=== PATIENT | female | born 1975 | race Caucasian/White ===

== ENCOUNTER 2018-06-24 03:45 | Emergency (ER) | payer OTHER ==
[2018-06-24] MEDS ORDERED: FAMOTIDINE 20 MG/50 ML IVPB 20 MG/50 ML MG IVPB ONE ×2 (03:52→03:59)
[2018-06-24] MEDS ORDERED: methylPREDNISolone NA SUCC 125 MG/2 ML VIAL IVPB ONE (03:52)
--- NOTE | 2018-06-24 03:58 | PDOC ---
Attending Attestation - HPI HPI: 06/24/18 04:28 The patient is a 42 year old female, with a significant PMH of glaucoma, urticarial allergic reactions, and hernia repair who presents to the emergency department with 1 day of worsening bilateral eyelid swelling. The patient states she believes the allergic reaction is from a cream from her hairstylist from her appointment this past . The patient states she saw her PCP at the start of her symptoms and was given cetirizine with minima relief. The patient denies chest pain, shortness of breath, wheezing, sore throat, throat closing sensation, headache and dizziness. Denies fever, chills, nausea, vomit, diarrhea and constipation. Denies dysuria, frequency, urgency and hematuria. Allergies: NKA - Physicial Exam PE: 06/24/18 04:28 GENERAL: Awake, alert, and fully oriented, in no acute distress HEAD: No signs of trauma EYES: (+) Bilateral periorbital edema. PERRLA, EOMI, sclera anicteric, conjunctiva clear ENT: Auricles normal inspection, hearing grossly normal, nares patent, oropharynx clear without exudates. Moist mucosa NECK: Normal ROM, supple, no lymphadenopathy, JVD, or masses LUNGS: Breath sounds equal, clear to auscultation bilaterally. No wheezes, and no crackles HEART: Regular rate and rhythm, normal S1 and S2, no murmurs, rubs or gallops ABDOMEN: Soft, nontender, normoactive bowel sounds. No guarding, no rebound. No masses EXTREMITIES: Normal range of motion, no edema. No clubbing or cyanosis. No cords, erythema, or tenderness NEUROLOGICAL: Cranial nerves II through XII grossly intact. Normal speech, normal gait SKIN: Warm, Dry, normal turgor, no rashes or lesions noted. <Dawson Hargrove - Last Filed: 06/24/18 04:27> - Resident Resident Name: Saundra Acuña - ED Attending Attestation I have performed the following: I have examined & evaluated the patient, The case was reviewed & discussed with the resident, I agree w/resident's findings & plan - Medical Decision Making 06/24/18 04:20 Pt will be treated with solumedrol and benadryl and pepcid. SHe feels well. She has no fever or chills, or asthma/wheeze/difficulty breathing. 06/24/18 04:55 Pt has swollen eyes and forehead and she will be discharged home. <Vianey Martinez - Last Filed: 06/24/18 04:56> Attestations - Attestations 06/24/18 04:30 Documentation prepared by Dawson Hargrove, acting as chief medical officer for Vianey Martinez MD. <Dawson Hargrove - Last Filed: 06/24/18 04:27>
[2018-06-24] MEDS ORDERED: methylPREDNISolone NA SUCC 125 MG/2 ML VIAL ONE ×2 (03:59)
[2018-06-24 04:07] VITALS: BP 150/70; PULSE 75; TEMP 97.6; BMI 20.1
--- NOTE | 2018-06-24 04:11 | PDOC ---
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 She saw her PCP at the onset of symptoms and was prescribed cetirizine without improvement. She denies any throat closing sensation, hoarse voice, wheezing, SOB, chest pain, palpitations, n/v/d/ c, rash, pruritis, or other symptoms. She is still able to see and she has no eye pain or headache or dizziness. She has never had a reaction this bad before. Past History - Past Medical History Allergies/Adverse Reactions: Allergies Allergy/AdvReac Type Severity Reaction Status Date / Time No Known Allergies Allergy Verified 06/24/18 04:06 Home Medications: Ambulatory Orders Ibuprofen [Motrin -] 400 mg PO QID #28 tablet 06/03/16 Norgestimate-Ethinyl Estradiol [Tri-Estarylla] 1 each PO DAILY 06/03/16 Epinephrine [Epipen 2-Misael] 0.3 mg IJ ASDIR #1 kit 06/24/18 Prednisone [Deltasone] 20 mg PO DAILY #4 tablet 06/24/18 GI Disorders: Yes (gerd) - Surgical History Abdominal Surgery: Yes (HERNIA) - Suicide/Smoking/Psychosocial Hx Smoking History: Never smoked Have you smoked in the past 12 months: No Hx Alcohol Use: No Drug/Substance Use Hx: No Substance Use Type: None Review of Systems - Review of Systems Able to Perform ROS?: Yes Constitutional: No: Chills, Fever, Unexplained wgt Loss HEENTM: Yes: Other (eyelid swelling). No: Nose Congestion, Throat Pain Respiratory: No: Cough, Shortness of Breath Cardiac (ROS): No: Chest Pain, Palpitations ABD/GI: No: Constipated, Diarrhea, Nausea, Vomiting : No: Burning, Dysuria Musculoskeletal: No: Back Pain, Neck Pain Integumentary: No: Bruising, Rash Neurological: No: Headache, Numbness, Tingling, Weakness, Dizziness Endocrine: No: Unexplained Weight Gain, Unexplained Weight Loss *Physical Exam - Physical Exam General Appearance: Yes: Nourished, Appropriately Dressed, Other (alert and appropriate and well appearing adult female in no distress who answers questions appropriately). No: Apparent Distress HEENT: positive: EOMI, MARISELA, Normal Voice, Hearing Grossly Normal, Other ( marked bilateral periorbital edema limiting her ability to open her eyes). negative: Scleral Icterus (R), Scleral Icterus (L), Nasal Congestion Neck: positive: Trachea midline, Supple. negative: Tender, Rigid Respiratory/Chest: positive: Lungs Clear, Normal Breath Sounds. negative: Respiratory Distress, Crackles, Rhonchi, Stridor, Wheezing Cardiovascular: positive: Regular Rhythm, Regular Rate, S1, S2. negative: Edema , JVD, Murmur Gastrointestinal/Abdominal: positive: Normal Bowel Sounds, Soft. negative: Tender, Organomegaly, Pulsatile Mass, Guarding Musculoskeletal: positive: Normal Inspection. negative: Decreased Range of Motion, Vertebral Tenderness Extremity: positive: Normal Capillary Refill, Normal Inspection, Normal Range of Motion. negative: Tender, Cyanosis Integumentary: positive: Normal Color, Dry, Warm. 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 intact (grossly), Fully Oriented, Alert, Normal Mood/Affect, Normal Response, Motor Strength 5/5 ED Treatment Course - Medications Given in the ED: ED Medications Discontinued Medications Generic Name Dose Route Start Last Admin Trade Name Freq PRN Reason Stop Dose Admin Diphenhydramine HCl 50 mg 06/24/18 03:52 06/24/18 04:03 Benadryl Injection - IVPUSH 06/24/18 03:53 50 mg ONCE ONE Administration Methylprednisolone Sodium Succinate 125 mg 06/24/18 03:52 06/24/18 04:03 Solu-Medrol - IVPB 06/24/18 03:53 125 mg ONCE ONE Administration Medical Decision Making - Medical Decision Making 06/24/18 04:14 Pt p/w apparent allergic reaction. Initial Vital Signs Temp Pulse Resp BP Pulse Ox 97.6 F 75 20 150/70 100 06/24/18 03:52 06/24/18 03:52 06/24/18 03:52 06/24/18 03:52 06/24/18 03:52 Exam: As noted in Physical Exam section. DDX IBNLT: allergic rxn/angioedema, anaphylaxis, contact dermatitis, THERAPEUTIC SUPPORT STAFF, RPA, laryngitis, tracheitis, tonsillitis esophagitis, GERD, dysphagia, ACS, tracheal/ esophageal trauma, etc. W/U ordered: None TX ordered: IVF, Pepcid, Benadryl, Solu-Medrol Reassessment: Eyelid swelling improving, patient able to open her eyes and see well, walks self to bathroom. DISCHARGE The Pt has gotten significant relief of symptoms with ED medications. Workup is not concerning for emergency-level pathology at this time. The Pt is appropriate for discharge with close outpatient follow up. They are comfortable with this plan and will follow up with their PCP in 1-3 days. E-Rx for prednisone and EpiPen sent to patient's pharmacy. Specific return precautions are discussed and they will come back to the ER if necessary. *DC/Admit/Observation/Transfer Diagnosis at time of Disposition: Periorbital edema Allergic reaction Qualifiers: Encounter type: initial encounter Qualified Code(s): T78.40XA - Allergy, unspecified, initial encounter Glaucoma Qualifiers: Glaucoma type: unspecified Laterality: unspecified laterality Qualified Code(s) : H40.9 - Unspecified glaucoma - Discharge Dispostion Disposition: HOME Condition at time of disposition: Stable Decision to Admit order: No - Prescriptions Prescriptions: Epinephrine [Epipen 2-Misael] 0.3 mg IJ ASDIR #1 kit Prednisone [Deltasone] 20 mg PO DAILY #4 tablet - Referrals Referrals: Inessa Montiel MD [Primary Care Provider] - - Patient Instructions Printed Discharge Instructions: DI for Eye Allergic Reaction Additional Instructions: You were seen in the ER for an allergic reaction. We did an exam and gave you medications to control your symptoms, which improved while you were here in the ER. After our assessment, we do not believe you are having a medical emergency at this time, and we believe you are safe to go home. administrative support clerk your prescriptions which we are sending electronically to your pharmacy. This includes an EpiPen, which you should take only if you get throat closing sensation, difficulty breathing, lip swelling, vomiting, or other signs of severe allergic reaction. Please also take your steroid medication as prescribed , and take Benadryl 25 to 50 mg (or another antihistamine medication if you cannot take this medication because of your glaucoma) if you have symptoms. Please follow up with your regular PCP in 1-3 days. Call their clinic, tell them you were seen in the ER, and tell them you need a follow-up. If you have any new or worsening symptoms, especially increasing pain and redness to the area or other signs of infection like fever), please come back to the ER at any time (24 hours a day). If you are having severe or life threatening symptoms, or symptoms that make it unsafe to drive or have someone drive you, please call 911. - Post Discharge Activity
== END 2018-06-24 05:36 | disposition home or self-care (01) ==
LOC: JER 03:45
PROC: 3E0333Z Introduction of Anti-inflammatory into Peripheral Vein, Percutaneous Approach (ICD-10-PCS; principal; 2018-06-24)
PROC: 3E033GC Introduction of Other Therapeutic Substance into Peripheral Vein, Percutaneous Approach (ICD-10-PCS; 2018-06-24)
DX: H05.223 Edema of bilateral orbit (principal); H40.9 Unspecified glaucoma; T78.40XA Allergy, unspecified, initial encounter; X58.XXXA Exposure to other specified factors, initial encounter
CPT/HCPCS: 99282-25

== ENCOUNTER 2022-07-25 10:00 | Emergency (ER) | payer OTHER ==
[2022-07-25 10:16] VITALS: BP 147/75; PULSE 93; RESP 18; TEMP 97.9; BMI 20.1
== END 2022-07-25 10:45 | disposition home or self-care (01) ==
LOC: JER 10:00 → JERFT 10:00
DX: L02.214 Cutaneous abscess of groin (principal)
CPT/HCPCS: 99281-25

== ENCOUNTER 2023-04-12 06:54 | Emergency (ER) | payer OTHER ==
[2023-04-12 07:00] VITALS: RESP 18; BMI 21.7
[2023-04-12] MEDS ORDERED: ACETAMINOPHEN 1000 MG/100 ML BAG IVPB ONE (08:26)
[2023-04-12] MEDS ORDERED: FAMOTIDINE 20 MG/50 ML IVPB 20 MG/50 ML MG IVPB ONE ×2 (08:26→08:29)
[2023-04-12] MEDS ORDERED: SODIUM CHLORIDE 1,000 ML IV STA (08:26)
[2023-04-12] MEDS ORDERED: ACETAMINOPHEN INJECTION 100 ML IVPB ONE (08:29)
[2023-04-12 09:14] LABS: EOS % 0.7 % (0-4.5); HEMATOCRIT 42.4 % (32.4-45.2); HEMOGLOBIN 14.5 GM/dL (10.7-15.3); LYMPH % 25.9 % (8-40); MCH 29.8 pg (25.7-33.7); MCHC 34.1 g/dl (32.0-36.0); MEAN CELL VOLUME 87.4 fl (80-96); MEAN PLT VOLUME 9.7 fl (7.5-11.1); MONO % 8.9 % (3.8-10.2); NEUT % 63.5 % (42.8-82.8); PLATELET COUNT 214 10^3/uL (134-434); RBC 4.85 M/mm3 (3.60-5.2); RDW 13.4 % (11.6-15.6); WHITE BLOOD COUNT 6.1 K/mm3 (4.0-10.0)
[2023-04-12 09:19] LABS: EPI CELLS 2 /uL (0-25.1); HYALINE CASTS 0 /uL (0-3.1); PH,URINE 6.5 (5.0-8.0); URINE APPEARANCE CLEAR; URINE BACTERIA 39 /uL (0-1359); URINE BILIRUBIN NEGATIVE (NEGATIVE); URINE COLOR YELLOW; URINE GLUCOSE (UA) NEGATIVE (NEGATIVE); URINE KETONE NEGATIVE (NEGATIVE); URINE LEUK ESTERASE NEGATIVE (NEGATIVE); URINE NITRITE NEGATIVE (NEGATIVE); URINE PROTEIN NEGATIVE (NEGATIVE); URINE RBC 35 /uL (0-23.9); URINE WBC 2 /uL (0-25.8)
[2023-04-12 09:20] LABS: HCG,QUALITATIVE URINE Negative
[2023-04-12 09:31] LABS: CALCIUM 8.6 mg/dL (8.5-10.1)
[2023-04-12 09:32] LABS: ALBUMIN 3.7 g/dl (3.4-5.0); BLOOD UREA NITROGEN 9.6 mg/dL (7-18)
[2023-04-12 09:36] LABS: CREATININE 0.5 mg/dL (0.55-1.3)
[2023-04-12 09:37] LABS: BILIRUBIN,TOTAL 0.4 mg/dL (0.2-1); TOT PROT 7.8 g/dl (6.4-8.2)
[2023-04-12 12:33] VITALS: BP 124/79; PULSE 71; TEMP 98.2
== END 2023-04-12 13:00 | disposition home or self-care (01) ==
LOC: JER 06:54
PROC: 3E033GC Introduction of Other Therapeutic Substance into Peripheral Vein, Percutaneous Approach (ICD-10-PCS; principal; 2023-04-12)
PROC: 3E033NZ Introduction of Analgesics, Hypnotics, Sedatives into Peripheral Vein, Percutaneous Approach (ICD-10-PCS; 2023-04-12)
DX: R10.11 Right upper quadrant pain (principal); R10.13 Epigastric pain; R19.7 Diarrhea, unspecified; K80.20 Calculus of gallbladder without cholecystitis without obstruction; Z20.822 Contact with and (suspected) exposure to COVID-19
CPT/HCPCS: 0241U-QW; 36415; 76705-TC; 80053; 81003; 82150; 83690; 84484; 84703; 85025; 87086; 93005; 93010; 99285-25

== ENCOUNTER 2023-06-20 23:36 | Emergency (ER) | payer OTHER ==
[2023-06-20 23:41] VITALS: BP 118/77; PULSE 82; RESP 16; TEMP 97.9; BMI 21.1
[2023-06-21] MEDS ORDERED: MAG HYDROX/AL HYDROX/SIMETH 30 ML UNIT-DOSE CUP PO ONE (00:57)
[2023-06-21] MEDS ORDERED: ACETAMINOPHEN 650 MG/20.3 ML ORAL SOLUTION (CUPS) PO ONE (00:57)
[2023-06-21] MEDS ORDERED: FAMOTIDINE 20 MG/50 ML IVPB 20 MG/50 ML MG IVPB ONE ×2 (01:01→01:51)
[2023-06-21] MEDS ORDERED: ACETAMINOPHEN 325 MG TABLET (FP) ONE (01:51)
[2023-06-21] MEDS ORDERED: MAG HYDROX/AL HYDROX/SIMETH 30 ML UNIT-DOSE CUP ONE (01:51)
[2023-06-21 02:26] LABS: BASO % 0.5 % (0-2.0); EOS % 0.7 % (0-4.5); HEMATOCRIT 42.7 % (32.4-45.2); HEMOGLOBIN 14.7 GM/dL (10.7-15.3); LYMPH % 15.6 % (8-40); MCH 29.8 pg (25.7-33.7); MCHC 34.5 g/dl (32.0-36.0); MEAN CELL VOLUME 86.5 fl (80-96); MEAN PLT VOLUME 8.9 fl (7.5-11.1); MONO % 7.1 % (3.8-10.2); NEUT % 76.1 % (42.8-82.8); PLATELET COUNT 221 10^3/uL (134-434); RBC 4.94 M/mm3 (3.60-5.2); RDW 13.2 % (11.6-15.6); WHITE BLOOD COUNT 8.3 K/mm3 (4.0-10.0)
[2023-06-21 02:33] LABS: EPI CELLS 10 /uL (0-25.1); HYALINE CASTS 0 /uL (0-3.1); PH,URINE 6.5 (5.0-8.0); URINE APPEARANCE CLEAR; URINE BACTERIA 413 /uL (0-1359); URINE BILIRUBIN NEGATIVE (NEGATIVE); URINE COLOR YELLOW; URINE GLUCOSE (UA) NEGATIVE (NEGATIVE); URINE KETONE NEGATIVE (NEGATIVE); URINE LEUK ESTERASE NEGATIVE (NEGATIVE); URINE NITRITE NEGATIVE (NEGATIVE); URINE PROTEIN NEGATIVE (NEGATIVE); URINE RBC 36 /uL (0-23.9); URINE WBC 6 /uL (0-25.8)
[2023-06-21 02:35] LABS: INR 1.09 (0.83-1.09); PROTHROMBIN TIME (PATIENT) 12.6 SEC (9.7-13.0)
[2023-06-21 02:38] LABS: ACTIVATED PTT 28.7 SECONDS (25.2-36.5)
[2023-06-21 02:47] LABS: POTASSIUM 3.6 mmol/L (3.5-5.1)
[2023-06-21 02:49] LABS: CALCIUM 8.9 mg/dL (8.5-10.1); MAGNESIUM 2.1 mg/dL (1.8-2.4)
[2023-06-21 02:50] LABS: ALBUMIN 3.7 g/dl (3.4-5.0)
[2023-06-21 02:52] LABS: CREATININE 0.7 mg/dL (0.55-1.3)
[2023-06-21 02:54] LABS: BILIRUBIN,TOTAL 0.8 mg/dL (0.2-1); TOT PROT 7.5 g/dl (6.4-8.2)
== END 2023-06-21 03:44 | disposition home or self-care (01) ==
LOC: JER 23:36
PROC: 3E033GC Introduction of Other Therapeutic Substance into Peripheral Vein, Percutaneous Approach (ICD-10-PCS; principal; 2023-06-20)
DX: K80.20 Calculus of gallbladder without cholecystitis without obstruction (principal); R10.13 Epigastric pain
CPT/HCPCS: 36415; 71046-TC-FY; 76705-TC; 80053; 81003; 83690; 83735; 84484; 84703; 85025; 85610; 85730; 93005; 93010; 99285-25

== ENCOUNTER 2023-10-17 11:56 | Emergency (ER) | payer OTHER ==
[2023-10-17 12:10] VITALS: BP 144/82; PULSE 95; RESP 18; TEMP 98.3; BMI 20.9
[2023-10-17] MEDS ORDERED: ACETAMINOPHEN 325 MG TABLET (FP) PO ONE (13:30)
[2023-10-17] MEDS ORDERED: ACETAMINOPHEN 325 MG TABLET (FP) ONE (13:36)
[2023-10-17 14:25] LABS: THROAT:GRP A STREP NOT DETECTED (NOTDETECTED)
== END 2023-10-17 15:06 | disposition home or self-care (01) ==
LOC: JERFT 11:56
DX: J02.9 Acute pharyngitis, unspecified (principal); Z20.822 Contact with and (suspected) exposure to COVID-19
CPT/HCPCS: 0241U-QW; 87651; 99283-25